=== PATIENT | male | born 1965 | race Caucasian/White ===

== ENCOUNTER 2022-06-28 09:54 | Emergency (ER) | payer SELFPAY ==
[2022-06-28 11:00] LABS: ANION GAP 11.3 mEq/L (7-13)
[2022-06-28] MEDS: Sodium Chloride 0.9% 1,000 ML IV ONE ×2 (11:28→13:15)
[2022-06-28] MEDS: VANCOmycin 1.5 GM/300 ML 1.5 GM in Premix Bag 1 BAG IV ONE (11:32)
[2022-06-28] MEDS: Piperacillin/Tazobactam 3.375 GM in Sodium Chloride 0.9% 100 ML IV ONE (12:46)
[2022-06-28] MEDS: Clindamycin HCl 150 MG Cap PO ONE (12:46)
== END 2022-06-28 13:24 ==
LOC: DL.ED 09:54
DX: L03.115 Cellulitis of right lower limb (principal); Z79.82 Long term (current) use of aspirin; Z79.899 Other long term (current) drug therapy; Z87.891 Personal history of nicotine dependence; Z20.822 Contact with and (suspected) exposure to COVID-19; Z91.14 Patient's other noncompliance with medication regimen
CPT/HCPCS: 36415; 73630; 80053; 82009; 83605; 84145; 85025; 87040; 87077; 87186; 87635; 96365; 96367; 99284; A9270; J2543; J3370; J7030; U0002